=== PATIENT | male | born 1960 | race Caucasian/White ===

== ENCOUNTER 2016-04-10 10:01 | Day surgery (SDC) | payer OTHER ==
[2016-04-09 14:11] VITALS: BMI 33.5
[~2016-04-10] VITALS: Ht 167.6 cm; Wt 97.4 kg
[2016-04-10] VITALS (13 sets, daily range): BP systolic 130–191; BP diastolic 73–97; PULSE 74–96; RESP 14–20; Ht 167.6 cm; Wt 97.4 kg
[2016-04-10] MEDS ORDERED: CEFAZOLIN 1 GM/50 ML (PMX) 50 ML IVPB ONE (10:30)
--- NOTE | 2016-04-10 12:25 | HPN ---
Date/Time of Note Date/Time of Note DATE: 04/10/16 TIME: 12:25 Interval H&P Admission Note Pt. seen H&P reviewed: No system changes RICKIE RODRIGUEZ MD Apr 10, 2016 12:25
[2016-04-10] MEDS ORDERED: MIDAZOLAM 1 MG/ML 2 ML INJ ONE (12:50)
[2016-04-10] MEDS ORDERED: BACITRACIN/POLYMYXIN 28.35 GM OINT TOP ONE (12:51)
[2016-04-10] MEDS ORDERED: LIDOCAINE 1%/EPI 30 ML INJ ONE (12:51)
[2016-04-10] MEDS ORDERED: ONDANSETRON 4 MG INJ IV PRN (13:30)
[2016-04-10] MEDS ORDERED: MEPERIDINE 25 MG INJ IV PRN (13:30)
[2016-04-10] MEDS ORDERED: FENTAnyl 50 MCG/ML VIAL IV PRN (13:30)
[2016-04-10] MEDS ORDERED: DIPHENHYDRAMINE 50 MG INJ IV PRN (13:30)
[2016-04-10] MEDS ORDERED: HYDROmorphONE (0.2 MG/ML) 10ML SYG IV PRN ×2 (13:30)
--- NOTE | 2016-04-10 13:49 | OPPN ---
Date/Time of Note Date/Time of Note DATE: 04/10/16 TIME: 13:46 Operative/Procedure Note Pre-Operative Diagnosis Right parotid mass Post-Operative Diagnosis Same Procedure 1. Right parotidectomy with facial nerve dissection 2. Right sternocleidomastoid muscle flap Surgeon: RICIKE RODRIGUEZ MD Anesthesiologist: RUT BARTLETT MD Implants/Grafts: Not applicable Estimated blood loss: minimal Drains: Not applicable Specimens Right parotid mass Complications: None Anesthesia type: general RICKIE RODRIGUEZ MD Apr 10, 2016 13:49
--- NOTE | 2016-04-10 13:55 | OPR ---
Date/Time of Note Date/Time of Note DATE: 04/10/16 TIME: 13:49 Operative Report Procedure Date: Apr 10, 2016 Preoperative Diagnosis Right parotid mass Postoperative Diagnosis Same Operation Performed 1. Right parotidectomy with facial nerve dissection 2. Right sternocleidomastoid rotational muscle flap Anesthesia: general Estimated Blood Loss: minimal Specimens Right parotid mass Tubes/Drains None Complications: None Pt Condition Post Procedure: stable Disposition: PACU Indications 55-year-old male with enlarging right parotid mass. 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 The risks benefits and alternative surgery were discussed. The risks included but are not limited to: Bleeding, infection , numbness, Callie syndrome, injury to the facial nerve, recurrence of mass, and cosmetic deformity. The patient understood these and signed consent. Operative Findings Large right sub-SMAS parotid lipoma Procedure Description After informed consent was obtained the patient was brought back to operating room. He was intubated by anesthesia and sedated. The bed was turned 90 his eyes were protected and a head drape was placed. His head was turned to the left and a modified Trae incision was marked. The area was then prepped and draped in the usual sterile fashion. 1% lidocaine with epinephrine was injected into the proposed site of incision. A 15 blade was used to make the incision. Subcutaneous skin flap was then elevated. The anterior border of the sternocleidomastoid muscle was then identified and dissected free from the adjacent parotid tissue. A SMAS flap was then elevated anteriorly. Immediately , a large lipoma was encountered using blunt dissection with a Kitner, I dissected the mass off of its deeper attachments. The mass was found to be adherent to the cervical branch of the facial nerve. Using blunt dissection the mass was bluntly dissected off of the nerve. Hemostasis was achieved with bipolar cautery. The area was irrigated profusely with saline. Surgicel was placed in the wound bed. Due to the large size of the mass that was removed, a large defect was left. The anterior head of the sternocleidomastoid muscle was then detached from the mastoid process this muscle was then rotated anteriorly to fill the defect. The muscle was then secured in place with interrupted 3-0 Vicryl suture. A good cosmetic and contour result was achieved. The skin was then closed with 2 layers with a 3-0 Vicryl for the deep dermis and a 5-0 nylon for the skin in a running fashion. Antibiotic ointment was placed followed by a pressure dressing. The patient was then extubated by anesthesia and brought to recovery room in stable condition. RICKIE RODRIGUEZ MD Apr 10, 2016 13:55
[2016-04-10] MEDS ORDERED: LIDOCAINE 2% (SDV) 5 ML INJ ONE (13:56)
[2016-04-10] MEDS ORDERED: ONDANSETRON 4 MG INJ ONE (13:56)
[2016-04-10] MEDS ORDERED: SUCCINYLCHOLINE CHLORIDE 100 MG/5 ML SYG IV ONE (13:56)
[2016-04-10] MEDS ORDERED: PROPOFOL 20 ML ONE (13:56)
[2016-04-10] MEDS ORDERED: CEFAZOLIN 1 GM INJ ONE (13:56)
== END 2016-04-10 16:00 | disposition home or self-care (01) ==
LOC: SDS 10:01
PROVIDERS: ATTEND Otolaryngology
DX: D17.0 Benign lipomatous neoplasm of skin and subcutaneous tissue of head, face and neck (principal); N40.0 Benign prostatic hyperplasia without lower urinary tract symptoms; E78.5 Hyperlipidemia, unspecified; F17.210 Nicotine dependence, cigarettes, uncomplicated
CPT/HCPCS: 14040; 42420; 88307; J0330; J0690; J2250; J2405; J3010; Z7610